=== PATIENT | female | born 1985 | race African-American/Black ===

== ENCOUNTER 2024-02-29 15:43 | Emergency (ER) | payer MEDICARE, SELFPAY ==
[2024-02-29 15:52] VITALS: BP 115/79; PULSE 88; RESP 20; TEMP 36.1; O2SAT 100
--- NOTE | 2024-02-29 16:08 | ED_ITS ---
HPI - General Adult General Chief complaint: Extremity Injury, Lower Stated complaint: right leg pain/cold Time Seen by Provider: 02/29/24 16:08 Source: patient, RN notes reviewed and old records reviewed Mode of arrival: ambulatory Limitations: no limitations History of Present Illness HPI narrative: 38 year old female accompanied by boyfriend with complaints of pain to her right groin pain that goes down her right leg since yesterday with no known injury.Patient also reports cough with some heaviness in her upper chest. Patient reports prior DVT to leg and also has nerve problems in her legs. 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 Patient is visiting area from [facility]. Patient continues to smoke cigarettes daily at 03/28 [facility]. Patient has not taken any OTC medications for her complaints MD complaint: right leg pain Onset (ago): day(s) (since yesterday) Location: right and lower extremity Radiation: extremity (down right leg) Severity: mild (unless uri bearing then pain increases) Quality: aching Treatments prior to arrival: none Related Data Home Medications Medication Instructions Recorded Confirmed carvedilol 25 mg tablet 25 mg PO BID 02/29/24 02/29/24 diazepam 5 mg tablet 5 mg PO TID PRN Seizures 02/29/24 02/29/24 levetiracetam 500 mg tablet 1,500 mg PO BID 02/29/24 02/29/24 oxcarbazepine 300 mg tablet 300 mg PO DAILY 02/29/24 02/29/24 pregabalin 150 mg capsule 150 mg PO BID 02/29/24 02/29/24 Allergies Allergy/AdvReac Type Severity Reaction Status Date / Time No Known Allergies Allergy Verified 02/29/24 16:22 Review of Systems Review of Systems: CONSTITUTIONAL: Denies fever, chills, or sweats. EYES: Denies visual changes, redness, or discharge. ENT: Denies rhinorrhea, congestion, sore throat, or otalgia. CARDIOVASCULAR: Denies chest pain, palpitations, or edema. RESPIRATORY: Reports cough denies dyspnea, reports some heaviness in upper chest with cough GASTROINTESTINAL: Denies abdominal pain, nausea, vomiting, or diarrhea. GENITOURINARY: Denies dysuria or hematuria. SKIN: Denies rash or itching. MUSCULOSKELETAL: Denies back pain,positive for pain to right groin with any activity and ambulation radiates down right leg, or myalgia. NEUROLOGIC: Denies headache, numbness, positive for right sided weakness due to CVA X2 . PSYCHIATRIC: Denies anxiety or depression. All systems reviewed & are unremarkable except as noted in HPI and below PMFSH Past Medical History Medical History (Updated 03/01/24 @ 12:00 by Lay Perera NP) Brain aneurysm with repair CVA (cerebral vascular accident) x2 DVT (deep venous thrombosis) right leg Right sided weakness Seizure disorder Surgical History Surgical History (Updated 03/01/24 @ 11:44 by Lay Perera NP) History of brain surgery aneurysm repair Social History Social History (Updated 03/01/24 @ 11:44 by Lay Perera NP) Smoking packs per day: 0.5 Smoking cigarettes per day: 10.0 Smoking status: Current every day smoker Tobacco type: cigarettes Alcohol intake: unknown Substance use: unknown Gender identity (if verbalized by the patient): Female Comments At time of signature, agree with nursing past medical, surgical, social and family history. There is no relevant family history pertinent to the presenting complaint Exam Narrative: GENERAL: chronic ill-appearing, well-nourished, and in no acute distress. HEAD: Normocephalic, atraumatic. EYES: PERRLA and EOMI. ENT: Nares clear, no rhinorrhea or epistaxis. Mucous membranes moist.TM's noramal NECK: Supple.no lymphadenopathy CHEST: Clear to auscultation. No respiratory distress.afebrile cough denies dyspnea reports some heaviness upper chest with cough HEART: Regular rate and rhythm. No murmur heard. Normal peripheral pulses. ABDOMEN: Soft, nontender, nondistended, normal active bowel sounds. EXTREMITIES: Normal range of motion. No edema.Reports pain to right groin which radiates down right leg denies any injury does have some weakness to right side from previous CVA'sx2 but able to move on own power. Pain increases with movement and ambulation right foot has palpable pedal pulse foot cool to touch. SKIN: Warm, dry, no rash. NEURO: No focal deficits. Alert and oriented x3. Course Course Emergency Course: Patient has multiple medical problems with history of prior CVA and DVT in right leg instructed patient that she needs further testing and higher level of care that can be provided in urgent care. Patient refuses to go to the emergency room for further evaluation of her complaints, states she doesn't want to have to wait in the ED. Patient signed AMA paper in regards to refusal for hospital transfer states she will wait and see her doctor when goes home. Anticipatory guidance given.? Portions of this record may have been created with voice recognition software Level of Care: Express Care Visit Vital Signs Vital signs: Vital Signs Temperature 36.1 C L 02/29/24 15:52 Pulse Rate 88 02/29/24 15:52 Respiratory Rate 20 02/29/24 15:52 Blood Pressure 115/79 02/29/24 15:52 Pulse Oximetry 100 02/29/24 15:52 Oxygen Delivery Room Air 02/29/24 15:52 Temperature 36.1 C L 02/29/24 15:52 Pulse Rate 88 02/29/24 15:52 Respiratory Rate 20 02/29/24 15:52 Blood Pressure 115/79 02/29/24 15:52 Pulse Oximetry 100 02/29/24 15:52 Oxygen Delivery Room Air 02/29/24 15:52 Reviewed Transfer Transfer comments: signed AMA paper in regards to refusal for transfer to ED for further evaluation. Medical Decision Making MDM Narrative Medical decision making narrative: Exam findings and imaging show no acute concerns or changes; patient is non- toxic appearing and is in no distress.? Patient is appropriate for outpatient treatment and follow-up Differential Diagnosis Differential Diagnosis: right groin pain, DVT right leg, multiple comorbidities Medical Records Medical records reviewed: Yes I reviewed the external patient's medical records. Vital Signs Vital Signs: Vital Signs Temperature 36.1 C L 02/29/24 15:52 Pulse Rate 88 02/29/24 15:52 Respiratory Rate 20 02/29/24 15:52 Blood Pressure 115/79 02/29/24 15:52 Pulse Oximetry 100 02/29/24 15:52 Oxygen Delivery Room Air 02/29/24 15:52 Temperature 36.1 C L 02/29/24 15:52 Pulse Rate 88 02/29/24 15:52 Respiratory Rate 20 02/29/24 15:52 Blood Pressure 115/79 02/29/24 15:52 Pulse Oximetry 100 02/29/24 15:52 Oxygen Delivery Room Air 02/29/24 15:52 reviewed Critical Care Time Critical Care Time Critical Care Time: No Discharge Plan Discharge Clinical Impression: Right groin pain, Leg pain, right Patient Disposition: Left Against Medical Advice Condition: Stable Prescriptions: No Action oxcarbazepine 300 mg tablet 300 mg PO DAILY carvedilol 25 mg tablet 25 mg PO BID levetiracetam 500 mg tablet 1,500 mg PO BID pregabalin 150 mg capsule 150 mg PO BID diazepam 5 mg tablet 5 mg PO TID PRN (Reason: Seizures) Follow-up/Referrals: PHYSICIAN NOT ON STAFF,NONSTAFF [Primary Care Provider] - Time of Disposition: 16:25 Quality [place] Coma Scale Eyes: Open Verbal: Oriented and Alert Motor: Follows Commands [place] Coma Total Score: 15
== END 2024-02-29 16:25 | disposition left against medical advice (07) ==
PROVIDERS: Emergency Provider Registered Nurse
DX: R10.31 Right lower quadrant pain (principal); M79.604 Pain in right leg; F17.210 Nicotine dependence, cigarettes, uncomplicated; G40.909 Epilepsy, unspecified, not intractable, without status epilepticus; I69.351 Hemiplegia and hemiparesis following cerebral infarction affecting right dominant side; Z86.718 Personal history of other venous thrombosis and embolism
CPT/HCPCS: 99202; G0463